=== PATIENT | male | born 1950 | race Caucasian/White ===

== ENCOUNTER 2017-05-13 20:06 | Emergency (ER) | payer BC ==
--- NOTE | 2017-05-13 20:45 | EDM.PDOC ---
ED HPI GENERAL MEDICAL PROBLEM - General Chief Complaint: Fever Stated Complaint: Fever (Lung CA-oncology wants lab) Time Seen by Provider: 05/13/17 20:14 Source of Information: Reports: Patient, Family () History Limitations: Reports: No Limitations - History of Present Illness INITIAL COMMENTS - FREE TEXT/NARRATIVE: This patient is a 66 year old male that presents to the ER. Patient reports that he has history of lung cancer. He reports being in [place] all week and having chemotherapy done on Tuesday and radiation done today. He reports that yesterday evening he a fever or 100.4. reports they did not treat the fever. She said it went away on its own today, then this evening it was 100.8, did not treat and resolved on its own again. They report they called his oncologist dehydrogenation operator this evening and was instructed to come to the ER. Patient reports that the past couple of days he has had more chest congestion and more productive cough than typical. Patient reports having a mild headache, generalized body aches. He denies runny nose, congestion, drainage, sore throat , neck pain, cp, soa, abd pain, urinary/bowel changes, rashes, edema. Patient is conversing in full and complete sentences. Alert and oriented. Onset Date: 05/12/17 Duration: Day(s): (1) Severity: Mild Improves with: Reports: None Worsens with: Reports: None Associated Symptoms: Reports: Cough, cough w sputum, Fever/Chills, Headaches. Denies: Confusion, Chest Pain, Diaphoresis, Loss of Appetite, Malaise, Nausea/ Vomiting, Rash, Seizure, Shortness of Breath, Syncope, Weakness - Related Data Allergies Allergy/AdvReac Type Severity Reaction Status Date / Time No Known Allergies Allergy Verified 05/13/17 20:06 Home Meds: Home Meds Ascorbate Calcium [Vitamin C] 500 mg PO DAILY 05/13/17 [History] Aspirin 81 mg PO DAILY 05/13/17 [History] LORazepam [LORazepam] 0.5 mg PO BEDTIME 05/13/17 [History] Multivitamin [Multivitamins] 1 cap PO DAILY 05/13/17 [History] Zolpidem Tartrate [Zolpidem Tartrate] 5 mg PO DAILY PRN 05/13/17 [History] Past Medical History Oncologic (Cancer) History: Reports: Lung Social & Family History - Tobacco Use Smoking Status *Q: Former Smoker Used Tobacco, but Quit: Yes Month Tobacco Last Used: unknown Tobacco Use Comment: pt has lung CA ED ROS GENERAL - Review of Systems Review Of Systems: See Below Constitutional: Reports: Fever HEENT: Reports: No Symptoms Respiratory: Reports: Cough, Sputum Cardiovascular: Reports: No Symptoms Endocrine: Reports: No Symptoms GI/Abdominal: Reports: No Symptoms : Reports: No Symptoms Musculoskeletal: Reports: Muscle Pain (muscle aches) Skin: Reports: No Symptoms Neurological: Reports: Headache Psychiatric: Reports: No Symptoms Hematologic/Lymphatic: Reports: No Symptoms Immunologic: Reports: No Symptoms ED EXAM, GENERAL - Physical Exam Exam: See Below Exam Limited By: No Limitations General Appearance: Alert, WD/WN, No Apparent Distress Eye Exam: Bilateral Eye: Normal Inspection, PERRL Ears: Normal External Exam, Normal Canal, Hearing Grossly Normal, Normal TMs Ear Exam: Bilateral Ear: Auricle Normal, Canal Normal, TM normal Nose: Normal Inspection, Normal Mucosa, No Blood Throat/Mouth: Normal Inspection, Normal Lips, Normal Teeth, Normal Gums, Normal Oropharynx, Normal Voice Head: Atraumatic, Normocephalic Neck: Normal Inspection, Supple, Non-Tender, Full Range of Motion Respiratory/Chest: No Respiratory Distress, Lungs Clear, No Accessory Muscle Use , Decreased Breath Sounds (mildly throughout.) Cardiovascular: Normal Peripheral Pulses, Regular Rate, Rhythm, No Edema, No Gallop, No JVD, No Murmur, No Rub Peripheral Pulses: 2+: Radial (L), Radial (R), Posterior Tibial (L), Posterior Tibial (R) GI/Abdominal: Soft, Non-Tender Back Exam: Normal Inspection, Full Range of Motion. No: CVA Tenderness (L), CVA Tenderness (R) Extremities: Normal Inspection, Normal Range of Motion, Non-Tender, No Pedal Edema, Normal Capillary Refill Neurological: Alert, Oriented, Normal Cognition, Normal Gait Psychiatric: Normal Affect, Normal Mood Skin Exam: Warm, Dry, Intact, Normal Color, No Rash Lymphatic: No Adenopathy Course - Vital Signs Last Recorded V/S: Last Vital Signs Temp 99.2 F 05/13/17 22:37 Pulse 97 05/13/17 20:34 Resp 18 05/13/17 20:09 BP 115/74 05/13/17 20:34 Pulse Ox 97 01/26/18 20:34 - Orders/Labs/Meds Orders: Active Orders 24 hr Category Date Time Status Chest 2V [CR] Stat Exams 05/13/17 20:26 Taken CULTURE BLOOD [BC] Stat Lab 05/13/17 20:47 Received CULTURE BLOOD [BC] Stat Lab 05/13/17 20:47 Received Blood Culture x2 Reflex Set [OM.PC] Stat Oth 05/13/17 20:27 Ordered Labs: Laboratory Tests 05/13/17 05/13/17 05/13/17 Range/Units 20:24 20:24 20:24 WBC 10.6 H (5.0-10.0) 10^3/uL RBC 4.65 (4.50-6.00) 10^6/uL Hgb 13.3 L (14.0-18.0) g/dL Hct 40.0 (40.0-54.0) % MCV 86.0 (82.0-94.0) fL MCH 28.6 (27.0-32.0) pg MCHC 33.3 (33.0-38.0) g/dL RDW Coeff of Renee 13.3 (11.0-15.0) % Plt Count 410 H (150-400) 10^3/uL Neut % (Auto) 81.1 (35-85) % Lymph % (Auto) 11.2 (10-55) % [place] % (Auto) 6.6 (0-16) % Eos % (Auto) 0.9 (0-5) % Baso % (Auto) 0.2 (0-3) % Neut # (Auto) 8.58 H (1.80-7.00) 10^3/uL Lymph # (Auto) 1.19 (1.00-4.80) 10^3/uL [place] # (Auto) 0.70 (0.00-0.80) 10^3/uL Eos # (Auto) 0.10 (0.00-0.45) 10^3/uL Baso # (Auto) 0.02 10^3/uL Sodium 134 L (136-145) mEq/L Potassium 4.2 (3.5-5.0) mEq/L Chloride 99 (98-106) mEq/L Carbon Dioxide 26 (21-32) mmol/L BUN 19 H (7-18) mg/dL Creatinine 1.0 (0.7-1.3) mg/dL Est Cr Clr Drug Dosing 67.34 mL/min Estimated GFR (MDRD) > 60 (>=60) mL/min Glucose 106 H (75-99) mg/dL Lactic Acid (0.4-2.0) mmol/L Calcium 8.9 (8.4-10.1) mg/dL Total Bilirubin 0.4 (0.0-1.0) mg/dL AST 11 L (15-37) U/L ALT 17 (12-78) U/L Alkaline Phosphatase 58 (46-116) U/L Total Protein 7.3 (6.4-8.2) g/dL Albumin 3.5 (3.4-5.0) g/dL Urine Color Yellow (YELLOW) Urine Appearance Clear (CLEAR) Urine pH 5.5 (4.5-8.0) Ur Specific [place] 1.015 (1.003-1.020) Urine Protein Negative (NEGATIVE) mg/dL Urine Glucose (UA) Negative (NEGATIVE) mg/dL Urine Ketones Negative (NEGATIVE) mg/dL Urine Occult Blood Negative (NEGATIVE) Urine Nitrite Negative (NEGATIVE) Urine Bilirubin Negative (NEGATIVE) Urine Urobilinogen 0.2 (0.2-1.0) EU/dL Ur Leukocyte Esterase Negative (NEGATIVE) Urine RBC Not seen (0-5) /HPF Urine WBC Not seen (0-5) /HPF 05/13/17 Range/Units 20:27 WBC (5.0-10.0) 10^3/uL RBC (4.50-6.00) 10^6/uL Hgb (14.0-18.0) g/dL Hct (40.0-54.0) % MCV (82.0-94.0) fL MCH (27.0-32.0) pg MCHC (33.0-38.0) g/dL RDW Coeff of Renee (11.0-15.0) % Plt Count (150-400) 10^3/uL Neut % (Auto) (35-85) % Lymph % (Auto) (10-55) % [place] % (Auto) (0-16) % Eos % (Auto) (0-5) % Baso % (Auto) (0-3) % Neut # (Auto) (1.80-7.00) 10^3/uL Lymph # (Auto) (1.00-4.80) 10^3/uL [place] # (Auto) (0.00-0.80) 10^3/uL Eos # (Auto) (0.00-0.45) 10^3/uL Baso # (Auto) 10^3/uL Sodium (136-145) mEq/L Potassium (3.5-5.0) mEq/L Chloride (98-106) mEq/L Carbon Dioxide (21-32) mmol/L BUN (7-18) mg/dL Creatinine (0.7-1.3) mg/dL Est Cr Clr Drug Dosing mL/min Estimated GFR (MDRD) (>=60) mL/min Glucose (75-99) mg/dL Lactic Acid 0.8 (0.4-2.0) mmol/L Calcium (8.4-10.1) mg/dL Total Bilirubin (0.0-1.0) mg/dL AST (15-37) U/L ALT (12-78) U/L Alkaline Phosphatase (46-116) U/L Total Protein (6.4-8.2) g/dL Albumin (3.4-5.0) g/dL Urine Color (YELLOW) Urine Appearance (CLEAR) Urine pH (4.5-8.0) Ur Specific [place] (1.003-1.020) Urine Protein (NEGATIVE) mg/dL Urine Glucose (UA) (NEGATIVE) mg/dL Urine Ketones (NEGATIVE) mg/dL Urine Occult Blood (NEGATIVE) Urine Nitrite (NEGATIVE) Urine Bilirubin (NEGATIVE) Urine Urobilinogen (0.2-1.0) EU/dL Ur Leukocyte Esterase (NEGATIVE) Urine RBC (0-5) /HPF Urine WBC (0-5) /HPF - Radiology Interpretation Free Text/Narrative:: CXR; Discussed with radiologist: "4.8cm right lob malignancy mass, no infiltrates or pulmonary edema." - Re-Assessments/Exams Free Text/Narrative Re-Assessment/Exam: 05/13/17 22:39 I spoke with oncologist dehydrogenation operator at [facility] Dr. De Jesus. Discussed patient case and results. No treatment. Will discharge. Patient has appointment with oncologist Tuesday. Departure - Departure Time of Disposition: 22:38 Disposition: Home, Self-Care 01 Condition: Fair Clinical Impression: Fever Qualifiers: Fever type: unspecified Qualified Code(s): R50.9 - Fever, unspecified Lung cancer Qualifiers: Laterality: right Lung location: unspecified part of lung Qualified Code(s): C34.91 - Malignant neoplasm of unspecified part of right bronchus or lung - Discharge Information Instructions: Fever, Adult, [id number] Referrals: Domenic Saunders MD [Primary Care Provider] - Forms: ED Department Discharge Additional Instructions: Followup with your oncologist Return to the ER for worsening of condition or any emergent concerns Followup with your primary care provider as needed - My Orders Last 24 Hours: My Active Orders 05/13/17 20:26 Chest 2V [CR] Stat 05/13/17 20:27 Blood Culture x2 Reflex Set [OM.PC] Stat 05/13/17 20:47 CULTURE BLOOD [BC] Stat CULTURE BLOOD [BC] Stat - Assessment/Plan Last 24 Hours: My Active Orders 05/13/17 20:26 Chest 2V [CR] Stat 05/13/17 20:27 Blood Culture x2 Reflex Set [OM.PC] Stat 05/13/17 20:47 CULTURE BLOOD [BC] Stat CULTURE BLOOD [BC] Stat Plan: PLEASE SEE RN NOTE FOR PFSH.
[2017-05-13 20:56] LABS: CHLORIDE,CL 99 mEq/L (98-106); SODIUM,NA 134 mEq/L (136-145)
== END 2017-05-13 22:44 | disposition home or self-care (01) ==
LOC: CC.ED 20:06
DX: C34.91 Malignant neoplasm of unspecified part of right bronchus or lung (principal); Z79.82 Long term (current) use of aspirin; Z79.899 Other long term (current) drug therapy; Z87.891 Personal history of nicotine dependence
CPT/HCPCS: 36415; 71046; 80053; 81001; 83605; 85025; 87040; 87430; 87804; 99284

== ENCOUNTER 2017-05-15 19:54 | Emergency (ER) | payer BC ==
--- NOTE | 2017-05-15 20:23 | EDM.PDOC ---
ED HPI GENERAL MEDICAL PROBLEM - General Chief Complaint: Fever Stated Complaint: fever Time Seen by Provider: 05/15/17 19:54 Source of Information: Reports: Patient, Family History Limitations: Reports: No Limitations - History of Present Illness INITIAL COMMENTS - FREE TEXT/NARRATIVE: This patient is a 66 year old male that presents to the ER with daughter. Patient is a lung cancer patent with chemo done on Tuesday and Radiation done on Tuesday. He was seen here in the ER Tuesday night for the same complaint of fever. Patient had labs done and I spoke to his oncologist Tuesday night, no treatment, discharged home. Patient reports that yesterday he did not have a fever. He reports then this evening about 4pm he felt cold, was sitting in front of a heater with chills. He reports his then took his temperature and it was 101.2. Patient reports his called the oncologist dice table person and was instructed to come to the ER for evaluation. The patient reports that he continues to have same productive cough, not any better or worse. He reports that today for the first time he had blood in his sputum with coughing x1 today. Patient denies yoder, dizziness, n, v, d, neck pain, neck stiffness, chest pain, shortness of breath from baseline, abd pain, urinary/bowel changes, rashes. Patient is alert and oriented, conversing in full and complete sentences without difficulty. Onset: Today Onset Date: 05/15/17 Onset Time: 16:00 Severity: Mild Improves with: Reports: None Worsens with: Reports: None Associated Symptoms: Reports: Cough, cough w sputum, Fever/Chills. 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 - Related Data Allergies Allergy/AdvReac Type Severity Reaction Status Date / Time No Known Allergies Allergy Verified 05/15/17 19:55 Home Meds: Home Meds Ascorbate Calcium [Vitamin C] 500 mg PO DAILY 05/13/17 [History] Aspirin 81 mg PO DAILY 05/13/17 [History] LORazepam [LORazepam] 0.5 mg PO BEDTIME 05/13/17 [History] Multivitamin [Multivitamins] 1 cap PO DAILY 05/13/17 [History] Zolpidem Tartrate [Zolpidem Tartrate] 5 mg PO DAILY PRN 05/13/17 [History] Past Medical History Oncologic (Cancer) History: Reports: Lung Social & Family History - Family History Family Medical History: Noncontributory - Tobacco Use Smoking Status *Q: Never Smoker Used Tobacco, but Quit: Yes Month Tobacco Last Used: UNK ED ROS GENERAL - Review of Systems Review Of Systems: See Below Constitutional: Reports: Fever, Chills HEENT: Reports: No Symptoms. Denies: Rhinitis, Sinus Problem Respiratory: Reports: Cough, Sputum, Hemoptysis. Denies: Shortness of Breath ( no changes from baseline.) Cardiovascular: Reports: No Symptoms Endocrine: Reports: No Symptoms GI/Abdominal: Reports: No Symptoms : Reports: No Symptoms Musculoskeletal: Reports: No Symptoms Skin: Reports: No Symptoms Neurological: Reports: No Symptoms Psychiatric: Reports: No Symptoms Hematologic/Lymphatic: Reports: No Symptoms Immunologic: Reports: No Symptoms ED EXAM, GENERAL - Physical Exam Exam: See Below Exam Limited By: No Limitations General Appearance: Alert, WD/WN, No Apparent Distress Eye Exam: Bilateral Eye: Normal Inspection, PERRL Ears: Normal External Exam, Normal Canal, Hearing Grossly Normal, Normal TMs Ear Exam: Bilateral Ear: Auricle Normal, Canal Normal, TM normal Nose: Normal Inspection, Normal Mucosa, No Blood Throat/Mouth: Normal Inspection, Normal Lips, Normal Teeth, Normal Gums, Normal Oropharynx, Normal Voice, No Airway Compromise Head: Atraumatic, Normocephalic Neck: Normal Inspection, Supple, Non-Tender, Full Range of Motion Respiratory/Chest: No Respiratory Distress, Lungs Clear, Normal Breath Sounds, No Accessory Muscle Use, Chest Non-Tender Cardiovascular: Normal Peripheral Pulses, Regular Rate, Rhythm, No Edema, No Gallop, No JVD, No Murmur, No Rub Peripheral Pulses: 2+: Radial (L), Radial (R), Posterior Tibial (L), Posterior Tibial (R) GI/Abdominal: Normal Bowel Sounds, Soft, Non-Tender, No Organomegaly, No Distention, No Abnormal Bruit, No Mass, Pelvis Stable (Male) Exam: Deferred Rectal (Males) Exam: Deferred Back Exam: Normal Inspection, Full Range of Motion. No: CVA Tenderness (L), CVA Tenderness (R), Decreased Range of Motion, Muscle Spasm, Paraspinal Tenderness, Vertebral Tenderness Extremities: Normal Inspection, Normal Range of Motion, Non-Tender, No Pedal Edema, Normal Capillary Refill Neurological: Alert, Oriented, Normal Cognition, Normal Gait, No Motor/Sensory Deficits Psychiatric: Normal Affect, Normal Mood Skin Exam: Warm, Dry, Intact, Normal Color, No Rash Lymphatic: No Adenopathy Course - Vital Signs Last Recorded V/S: Last Vital Signs Temp 98.2 F 05/15/17 19:55 Pulse 88 05/15/17 19:55 Resp 18 05/15/17 19:55 BP 116/63 05/15/17 19:55 Pulse Ox 95 05/15/17 19:55 - Orders/Labs/Meds Orders: Active Orders 24 hr Category Date Time Status Chest 2V [CR] Stat Exams 05/15/17 20:01 Taken CULTURE BLOOD [BC] Stat Lab 05/15/17 20:24 Received CULTURE BLOOD [BC] Stat Lab 05/15/17 20:24 Results INFLUENZA A+B AG SCREEN [RM] Stat Lab 05/15/17 20:01 Ordered Levofloxacin [Levaquin] Med 05/15/17 21:13 Once 500 mg PO ONETIME ONE Blood Culture x2 Reflex Set [OM.PC] Stat Oth 05/15/17 19:57 Ordered Labs: Laboratory Tests 05/15/17 05/15/17 05/15/17 Range/Units 19:57 19:57 19:57 WBC 9.2 (5.0-10.0) 10^3/uL RBC 4.26 L (4.50-6.00) 10^6/uL Hgb 12.3 L (14.0-18.0) g/dL Hct 35.6 L (40.0-54.0) % MCV 83.6 (82.0-94.0) fL MCH 28.9 (27.0-32.0) pg MCHC 34.6 (33.0-38.0) g/dL RDW Coeff of Renee 13.0 (11.0-15.0) % Plt Count 378 (150-400) 10^3/uL Neut % (Auto) 73.8 (35-85) % Lymph % (Auto) 14.6 (10-55) % [place] % (Auto) 10.1 (0-16) % Eos % (Auto) 1.1 (0-5) % Baso % (Auto) 0.4 (0-3) % Neut # (Auto) 6.81 (1.80-7.00) 10^3/uL Lymph # (Auto) 1.35 (1.00-4.80) 10^3/uL [place] # (Auto) 0.93 H (0.00-0.80) 10^3/uL Eos # (Auto) 0.10 (0.00-0.45) 10^3/uL Baso # (Auto) 0.04 10^3/uL Sodium 134 L (136-145) mEq/L Potassium 4.2 (3.5-5.0) mEq/L Chloride 100 (98-106) mEq/L Carbon Dioxide 24 (21-32) mmol/L BUN 19 H (7-18) mg/dL Creatinine 1.1 (0.7-1.3) mg/dL Est Cr Clr Drug Dosing 61.22 mL/min Estimated GFR (MDRD) > 60 (>=60) mL/min Glucose 97 (75-99) mg/dL Lactic Acid 1.1 (0.4-2.0) mmol/L Calcium 8.9 (8.4-10.1) mg/dL Total Bilirubin 0.3 (0.0-1.0) mg/dL AST 11 L (15-37) U/L ALT 16 (12-78) U/L Alkaline Phosphatase 57 (46-116) U/L C-Reactive Protein 5.7 H (0.2-0.8) mg/dL Total Protein 6.9 (6.4-8.2) g/dL Albumin 3.2 L (3.4-5.0) g/dL Urine Color (YELLOW) Urine Appearance (CLEAR) Urine pH (4.5-8.0) Ur Specific [place] (1.003-1.020) Urine Protein (NEGATIVE) mg/dL Urine Glucose (UA) (NEGATIVE) mg/dL Urine Ketones (NEGATIVE) mg/dL Urine Occult Blood (NEGATIVE) Urine Nitrite (NEGATIVE) Urine Bilirubin (NEGATIVE) Urine Urobilinogen (0.2-1.0) EU/dL Ur Leukocyte Esterase (NEGATIVE) Urine RBC (0-5) /HPF Urine WBC (0-5) /HPF 01/28/18 Range/Units 20:04 WBC (5.0-10.0) 10^3/uL RBC (4.50-6.00) 10^6/uL Hgb (14.0-18.0) g/dL Hct (40.0-54.0) % MCV (82.0-94.0) fL MCH (27.0-32.0) pg MCHC (33.0-38.0) g/dL RDW Coeff of Renee (11.0-15.0) % Plt Count (150-400) 10^3/uL Neut % (Auto) (35-85) % Lymph % (Auto) (10-55) % [place] % (Auto) (0-16) % Eos % (Auto) (0-5) % Baso % (Auto) (0-3) % Neut # (Auto) (1.80-7.00) 10^3/uL Lymph # (Auto) (1.00-4.80) 10^3/uL [place] # (Auto) (0.00-0.80) 10^3/uL Eos # (Auto) (0.00-0.45) 10^3/uL Baso # (Auto) 10^3/uL Sodium (136-145) mEq/L Potassium (3.5-5.0) mEq/L Chloride (98-106) mEq/L Carbon Dioxide (21-32) mmol/L BUN (7-18) mg/dL Creatinine (0.7-1.3) mg/dL Est Cr Clr Drug Dosing mL/min Estimated GFR (MDRD) (>=60) mL/min Glucose (75-99) mg/dL Lactic Acid (0.4-2.0) mmol/L Calcium (8.4-10.1) mg/dL Total Bilirubin (0.0-1.0) mg/dL AST (15-37) U/L ALT (12-78) U/L Alkaline Phosphatase (46-116) U/L C-Reactive Protein (0.2-0.8) mg/dL Total Protein (6.4-8.2) g/dL Albumin (3.4-5.0) g/dL Urine Color Yellow (YELLOW) Urine Appearance Clear (CLEAR) Urine pH 5.0 (4.5-8.0) Ur Specific [place] <= 1.005 (1.003-1.020) Urine Protein Negative (NEGATIVE) mg/dL Urine Glucose (UA) Negative (NEGATIVE) mg/dL Urine Ketones Negative (NEGATIVE) mg/dL Urine Occult Blood Negative (NEGATIVE) Urine Nitrite Negative (NEGATIVE) Urine Bilirubin Negative (NEGATIVE) Urine Urobilinogen 0.2 (0.2-1.0) EU/dL Ur Leukocyte Esterase Negative (NEGATIVE) Urine RBC Not seen (0-5) /HPF Urine WBC Not seen (0-5) /HPF - Radiology Interpretation Free Text/Narrative:: CXR: Discussed with radiologist: No change from Tuesday. No infiltrate. - Re-Assessments/Exams Free Text/Narrative Re-Assessment/Exam: 05/15/17 21:[address] Santoyo about this patient. He would like me to put the patient on Levaquin and discharge patient home. Departure - Departure Time of Disposition: 21:12 Disposition: Home, Self-Care 01 Condition: Good Clinical Impression: Fever Qualifiers: Fever type: unspecified Qualified Code(s): R50.9 - Fever, unspecified - Discharge Information Instructions: Fever, Adult, [id number] Referrals: Domenic Saunders MD [Primary Care Provider] - Forms: ED Department Discharge Additional Instructions: Followup with your primary care provider Return to the ER for worsening of condition or any emergent concerns Followup with your oncologist as scheduled Levaquin 500mg 1 pill once a day for 7 days #7 no refill Tylenol for fever - My Orders Last 24 Hours: My Active Orders 05/15/17 19:57 Blood Culture x2 Reflex Set [OM.PC] Stat 05/15/17 20:01 Chest 2V [CR] Stat INFLUENZA A+B AG SCREEN [RM] Stat 05/15/17 20:24 CULTURE BLOOD [BC] Stat CULTURE BLOOD [BC] Stat 05/15/17 21:13 Levofloxacin [Levaquin] 500 mg PO ONETIME ONE - Assessment/Plan Last 24 Hours: My Active Orders 05/15/17 19:57 Blood Culture x2 Reflex Set [OM.PC] Stat 05/15/17 20:01 Chest 2V [CR] Stat INFLUENZA A+B AG SCREEN [RM] Stat 05/15/17 20:24 CULTURE BLOOD [BC] Stat CULTURE BLOOD [BC] Stat 05/15/17 21:13 Levofloxacin [Levaquin] 500 mg PO ONETIME ONE Plan: PLEASE SEE RN NOTE FOR PFSH.
[2017-05-15 20:37] LABS: CHLORIDE,CL 100 mEq/L (98-106); SODIUM,NA 134 mEq/L (136-145)
[2017-05-15] MEDS ORDERED: Levofloxacin 500 MG Tab PO ONE (21:13)
== END 2017-05-15 21:19 | disposition home or self-care (01) ==
LOC: CC.ED 19:54
DX: R50.9 Fever, unspecified (principal); C34.90 Malignant neoplasm of unspecified part of unspecified bronchus or lung; Z87.891 Personal history of nicotine dependence; Z79.82 Long term (current) use of aspirin; Z79.899 Other long term (current) drug therapy
CPT/HCPCS: 36415; 71046; 80053; 81001; 83605; 85025; 86140; 87040; 87430; 87804; 99284; A9270

== ENCOUNTER → 2018-12-08 | Day surgery (SDC) | payer BC, OTHER ==
[~2018-12-08] MED LIST: Lactated Ringers 1,000 ML IV SCH; Propofol 200 MG/20 ML SDV IV ONE
--- NOTE | 2018-12-08 10:55 | OR ---
DATE OF OPERATION: 12/08/2018 PREOPERATIVE DIAGNOSIS: HISTORY OF POLYPS. POSTOPERATIVE DIAGNOSIS: HISTORY OF POLYPS. SURGEON: Rodriguez Amato MD PROCEDURE: FULL-LENGTH COLONOSCOPY WITH FORCEPS POLYP REMOVAL X3, BIOPSY X1, LIPOMA. ANESTHESIA: MAC. COMPLICATIONS: None. SPECIMEN: 1. Lipoma biopsy x1. 2. Tubular adenomas x3, see report, all less than 0.5 cm. FINDINGS: 1. Full-length colonoscopy. 2. Lipoma 20 cm. 3. Sessile polyps x3. 4. [id number] sigmoid diverticulosis. RECOMMENDATIONS: Followup colonoscopy in 5 years. INDICATIONS: The patient has a history of polyps removed in the past and is overdue for a routine followup colonoscopy, was sent by his primary physician, Dr. Joceline Saunders from the [facility] in [place]. DESCRIPTION OF PROCEDURE: The patient was prepped and draped, placed in the left lateral decubitus position. A lubricated Olympus colonoscope was inserted and easily advanced to the cecum. We were able to directly visualize the ileocecal valve and appendiceal orifice. The bowel prep was excellent. Upon withdrawal of the scope, the cecum and ascending colon were benign. Right at the hepatic flexure, the patient had 2 small flat sessile polyps, the smaller of the 2 was removed with 1 cold forceps biopsy, the larger of the 2 was removed with 2 in its entirety. The rest of the transverse and descending colons were unremarkable. The patient had scattered diverticula throughout the sigmoid area, mild to moderate in severity without any inflammatory change. A 3rd small polyp was noted around 40 cm, also removed with a forceps in its entirety without complication. The patient does have a previously biopsied lipoma in the distal sigmoid region. It was rebiopsied, unchanged in size, and benign in appearance. I found no other polyps, mass, ulceration, or bleeding sites. No vascular abnormalities or signs of colitis. The rectal vault was benign. Retroflexion of the scope in the rectum showed no anal lesions. Air was suctioned, scope removed without complication. SHAKIRA/DANY /[id number] cc: Joceline Saunders MD [place], [place]
== END ==
LOC: CC.SDS 08:12
PROVIDERS: ATTEND Family Medicine
DX: Z12.11 Encounter for screening for malignant neoplasm of colon (principal); D12.4 Benign neoplasm of descending colon; D12.3 Benign neoplasm of transverse colon; K57.30 Diverticulosis of large intestine without perforation or abscess without bleeding; K63.89 Other specified diseases of intestine; K21.9 Gastro-esophageal reflux disease without esophagitis; J44.9 Chronic obstructive pulmonary disease, unspecified; C34.91 Malignant neoplasm of unspecified part of right bronchus or lung; G47.00 Insomnia, unspecified; Z86.010 Personal history of colon polyps; Z87.891 Personal history of nicotine dependence; Z80.0 Family history of malignant neoplasm of digestive organs; Z79.899 Other long term (current) drug therapy
CPT/HCPCS: J2704